=== PATIENT | male | born 2000 | race Caucasian/White ===

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

== ENCOUNTER 2025-07-05 09:42 | Emergency (ER) | payer SELFPAY ==
--- OUTSIDE RECORDS SUMMARY | 2025-07-05 09:56 | XMS_ITS | Clinical Summary ---
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 To be dispersed here. 15 Gram 0 Active Family History Relation Name Status Comments Father Alive Mother Alive Social History Tobacco Use Types Packs/Day Years Used Date Smoking Tobacco: Every Day Cigarettes 0.3 1 Smokeless Tobacco: Never Alcohol Use Standard Drinks/Week Comments Yes 0 (1 standard drink = 0.6 oz pur e alcohol) Sex and Gender Information Value Date Recorded Sex Assigned at Not on file Legal Sex Male 12:20 AM CDT Gender Identity Not on file Sexual Orientation Not on file Last Filed Vital Signs Vital Sign Reading Time Taken Comments Blood Pressure 122/72 04/18/2020 1:46 AM CDT Pulse 68 04/18/2020 1:46 AM CDT Temperature 36.2 C (97.2 F) 04/18/2020 1:46 AM CDT Respiratory Rate 18 04/18/2020 1:46 AM CDT Oxygen Saturation 97% 04/18/2020 1:46 AM CDT Inhaled Oxygen Concentration - - Weight 90.7 kg (200 lb) 04/18/2020 12:39 AM CDT Height 182.9 cm (6') 04/18/2020 12:39 AM CDT Body Mass Index 27.12 04/18/2020 12:39 AM CDT Plan of Treatment Health Maintenance Due Date Last Done Comments HPV VACCINES (1 - Male 3-dose series) 02/01/2016 DTAP/TDAP/TD VACCINES (1 - Tdap) 02/01/2020 HEPATITIS B VACCINES (1 of 3 - 19+ 3-dose series) 01/2020 INFLUENZA VACCINE (#1) 2025 Insurance ALEX [id number] [facility]
--- OUTSIDE RECORDS SUMMARY | 2025-07-05 09:56 | XMS_ITS | Clinical Summary ---
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 To be dispersed here. 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
[2025-07-05 10:08] VITALS: BP 102/62; PULSE 65; TEMP 36.8; O2SAT 99
--- NOTE | 2025-07-05 10:20 | W.ED.EAR ---
HPI - Ear Problem General: Chief complaint: Ear Stated complaint: pain in both ears, feels congestion Time Seen by Provider: 07/05/25 10:14 Source: patient Mode of arrival: ambulatory Limitations: no limitations History of Present Illness: Patient is a 25-year-old male who presents to ED today with a complaint of bilateral ear pain (right>left) over the past few days. He states he is having trouble hearing out of the right ear secondary to pain. He has not had any injury or trauma. No drainage from the ears. He does have a history of ear infections. No recent fevers. No recent URI. MD Complaint: ear pain Location: bilateral Duration: constant Severity: moderate Relieving factors: nothing Exacerbating factors: nothing Discharge from ear: no Associated symptoms: Reports no associated symptoms and ear or mastoid pain; Denies fever(s), headache(s), neck pain or tinnitus Treatment prior to arrival: none Related Data Previous Rx's ?Medication ?Instructions ?Recorded amoxicillin 875 mg-potassium 1 tab PO BID #14 tabs 07/05/25 clavulanate 125 mg tablet Allergies Allergy/AdvReac Type Severity Reaction Status Date / Time No Known Allergies Allergy Verified 07/05/25 10:11 Review of Systems Const: Denies: fever(s), chills, body aches, fatigue or malaise Eyes: Denies: change in vision, blurry vision, blind spots, photophobia, floaters or seeing flashes ENMT: Reports: ear or mastoid pain; Denies: throat pain, odynophagia, ear discharge, tinnitus, disequilibrium, nasal discharge, nasal congestion or sinus pain GI: Denies: nausea or vomiting Musc: Denies: neck pain Neuro: Denies: headache(s) PFS ED PFSH: Social History Smoking and tobacco/nicotine status: never used tobacco/nicotine Physical Exam Const: COMMON NORMALS: no acute distress, average body habitus, no limitations, healthy appearing, alert and well nourished HENMT: COMMON NORMALS: EAC's normal and Normal external nose present FACE & SINUS: normal facial exam and sinuses nontender NOSE: Normal external nose present EXTERNAL AUDITORY CANAL: EAC's normal TYMPANIC MEMBRANE: TM abnormal TM laterality: right Details: bulging, bullous, dull, fluid behind TM and loss of landmarks and left Details: dull and erythematous MOUTH: Normal oral and palatal mucosa present, lip normal, tongue normal and Normal salivary glands and ducts present THROAT: posterior oropharynx normal and tonsils normal Neck/C-Spine: COMMON NORMALS: no lymphadenopathy Neuro: SENSORIUM/ORIENTATION: Yes alert Course Vital Signs: Vital signs: Vital Signs Temperature 98.3 F 07/05/25 10:08 Pulse Rate 65 07/05/25 10:08 Blood Pressure 102/62 07/05/25 10:08 Pulse Oximetry 99 07/05/25 10:08 Oxygen Delivery Me thod Room Air 07/05/25 10:08 MDM - Ear Medical Decision Making Patient will be placed on antibiotics for otitis media. He can follow-up with primary care in a week if symptoms are not improving. Differential Diagnosis Likely otitis media Medical Records I reviewed the patient's medical records. No radiology studies performed this visit Discharge Plan Discharge Patient Disposition: Home Clinical Impression: Otitis media Qualifiers: Otitis media type: suppurative Chronicity: acute Laterality: right Recurrence: non-recurrent Spontaneous tympanic membrane rupture: without spontaneous rupture Qualified Code(s): H66.001 - Acute suppurative otitis media without spontaneous rupture of ear drum, right ear Condition: Stable Prescriptions: New amoxicillin-pot clavulanate 875-125 mg tablet 1 tab PO BID Qty: 14 0RF Discontinued amoxicillin-pot clavulanate 875-125 mg tablet 1 tab PO BID 5 Days Qty: 10 0RF Discharge Orders: Discharge ED (Routine); Ordered 07/05/25 Ordered By: Aurea Lane Referrals: Jamshid Shah FNP-C [Primary Care Provider, Family Practice] Patient Instructions: Otitis Media - Adult, Earache (ED), Patient Portal & Kasia Instructions Print Language: German Coding Level of Care Code ED Floor Space Allocator for Bruce Valerio
== END 2025-07-05 10:27 | disposition home or self-care (01) ==
PROVIDERS: Emergency Provider Physician Assistant; PCP Nurse Practitioner
DX: H66.001 Acute suppurative otitis media without spontaneous rupture of ear drum, right ear (principal)
CPT/HCPCS: 99283